=== PATIENT | female | born 1960 | race Caucasian/White ===

== ENCOUNTER 2018-06-25 15:36 | Emergency (ER) | payer OTHER ==
--- NOTE | 2018-06-25 16:37 | UC ---
Abdominal Pain Female HPI - HPI Summary HPI Summary: 58 yo female with the onset of upper abd pain radiating through to her back worse with food or movement diaphoretic last PM pain 9.5/10 at time during the night now 4/10 no n/v/d no f/c no UTI symptoms for three days last week she had similar but less severe pain - History of Current Complaint Chief Complaint: UCAbdominalPain Stated Complaint: ABDOMINAL PAIN Time Seen by Provider: 06/25/18 16:03 Hx Obtained From: Patient Onset/Duration: Gradual Onset, Lasting Hours Timing: Constant Severity Initially: Severe Severity Currently: Mild Pain Intensity: 4 Pain Scale Used: 0-10 Numeric Location: Diffuse Radiates to: Back Character: Aching, Burning Aggravating Factor(s): Food, Movement Alleviating Factor(s): Spontaneous Resolution Associated Signs and Symptoms: Positive: Diaphoresis, Decreased Appetite Female Torso: 1 - complains of pain here 2 - tender here 3 - less tender here Allergies/Adverse Reactions: Allergies Allergy/AdvReac Type Severity Reaction Status Date / Time CHARLES Inhibitors Allergy Swelling Verified 06/25/18 15:53 Of Face,Lips,& Throat Adhesive Tape [Paper Tape] Allergy NOT PAPER Verified 06/25/18 15:53 JUST TRANSPORE TAPE-BLISTERS adhesive tape Allergy Unknown Verified 06/25/18 15:53 Reaction Details codeine Allergy Hallucinati Verified 06/25/18 15:53 ons STATINS Allergy Anaphylatic Uncoded 06/25/18 15:53 Shock PMH/Surg Hx/FS Hx/Imm Hx Previously Healthy: Yes - Surgical History Surgical History: Yes Surgery Procedure, Year, and Place: OVARY REMOVED, MASS OUT OF LT BREAST- BENIGN. HEART CATHERIZATION - Family History Known Family History: Positive: Hypertension, Other - Breast CA - Social History Alcohol Use: Daily Substance Use Type: None Smoking Status (MU): Light Every Day Tobacco Smoker Type: Cigarettes Review of Systems All Other Systems Reviewed And Are Negative: Yes Constitutional: Positive: Negative Skin: Positive: Negative Eyes: Positive: Negative ENT: Positive: Negative Respiratory: Positive: Negative Cardiovascular: Positive: Negative Gastrointestinal: Positive: Abdominal Pain Genitourinary: Positive: Negative Motor: Positive: Negative Neurovascular: Positive: Negative Musculoskeletal: Positive: Negative Neurological: Positive: Negative Psychological: Positive: Negative Physical Exam Triage Information Reviewed: Yes Appearance: Well-Appearing, No Pain Distress, Well-Nourished Vital Signs: Initial Vital Signs Temp 97.0 F 06/25/18 15:47 Pulse 98 06/25/18 15:47 Resp 18 06/25/18 15:47 BP 00/00 06/25/18 15:47 Pulse Ox 99 06/25/18 15:47 Vital Signs Reviewed: Yes Eyes: Positive: Conjunctiva Clear ENT: Positive: Hearing grossly normal. Negative: Nasal congestion, Nasal drainage, Trismus, Muffled voice, Hoarse voice Neck: Positive: Supple, Nontender, No Lymphadenopathy Respiratory: Positive: Lungs clear, Normal breath sounds, No respiratory distress, No accessory muscle use Cardiovascular: Positive: RRR, No Murmur Abdomen Description: Positive: Soft. Negative: Nontender - LLQ>RLQ tenderness, CVA Tenderness (R), CVA Tenderness (L), Distended, Guarding Bowel Sounds: Positive: Present, Hyperactive Musculoskeletal: Positive: ROM Intact, No Edema Neurological: Positive: Alert Psychological Exam: Normal Skin Exam: Normal Diagnostics - Laboratory Diagnostic Studies Completed/Ordered: UA +leuks - EKG Cardiac Rate: NL Cardiac Rhythm: Sinus: Normal Ectopy: None ST Segment: Normal Abd Pain Female Course/Dx - Differential Dx/Diagnosis Provider Diagnosis: Abdominal pain of unknown cause Discharge - Sign-Out/Discharge Documenting (check all that apply): Patient Departure All imaging exams completed and their final reports reviewed: No Studies - Discharge Plan Condition: Stable Disposition: TRANS [facility] Referrals: Mindy May MD [Primary Care Provider] - Additional Instructions: please go directly to the ER for evaluation of you abdominal pain don't eat or drink enroute - Billing Disposition and Condition Condition: STABLE Disposition: Trans Higher Lvl of Care Fac
[2018-06-25 16:50] VITALS: BP 163/97
== END 2018-06-25 16:50 | disposition short-term general hospital (02) ==
LOC: UCEAST 15:36
DX: R10.10 Upper abdominal pain, unspecified (principal); Z88.8 Allergy status to other drugs, medicaments and biological substances; Z88.5 Allergy status to narcotic agent; F17.210 Nicotine dependence, cigarettes, uncomplicated
CPT/HCPCS: 81003; 87086; 93005; 99212; G0463

== ENCOUNTER → 2018-10-22 08:12 | Day surgery (SDC) | payer OTHER ==
[~2018-10-22 08:12] MED LIST: Adenosine* 3 MG/ML VIAL ONE; Aspirin 81 mg CHEW TAB* 81 MG TAB.CHEW PO SCH; CETIRIZINE HCL 10 MG PO SCH; Cyanocobalamin INJ * 1,000 MCG/ML VIAL 1 ML VIAL IM SCH; Diazepam TAB(*) 5 MG PO PRN; Diltiazem CD CAP* 120 MG PO SCH; ESOMEPRAZOLE MAGNESIUM 40 MG PO SCH; Heparin(*) 1000 UNIT/ML 10 ML VIAL CATH LAB IV ONE; Iohexol 350 (CONTRAST) 200 ML MDV IV ONE; Lidocaine 1% INJ* 10 MG/ML 30 ML SDV ONE; Midazolam* 1 MG/ML 5 ML VIAL (5 MG) ONE; NS 0.9% 1000 ML** 1,000 ML IV SCH; fentaNYL* 50 MCG/ML 2 ML VIAL (100 MCG VIAL) ONE; hydrALAZINE TAB* 25 MG PO SCH; nitroGLYCERIN DRIP* 25,000 MCG/250 ML BTL ONE; traMADol TAB* 50 MG PO PRN
[2018-10-22 16:49] VITALS: BP 156/106
--- NOTE | 2018-10-23 08:48 | CATH ---
CC: Dr. Mindy May; Dr. Everardo Espitia, [facility]. DIAGNOSTIC CARDIAC CATHETERIZATION REPORT: DATE OF PROCEDURE: 10/22/18 INDICATION FOR THE PROCEDURE: Asked by Dr. Espitia, the patient's primary shell mold bonder to perform diagnostic cardiac catheterization in light of the patient with chest discomfort with a history of prior coronary artery disease moderate nature with a Lexiscan stress test showing no ischemia with fixed or reversible perfusion abnormalities, but an elevated TID raising the question of multivessel disease. Assess the patient for progression of coronary artery disease. PROCEDURE: Coronary arteriography, left heart catheterization, left ventriculography, fractional flow reserve analysis of the left anterior descending artery. CONSENT: The patient was interviewed and examined in the holding area of the lab engineer where the risks and benefits were explained. She understood them and wished to proceed. PRECARDIAC CATHETERIZATION LABORATORY RESULTS: Hemoglobin and hematocrit of 14 and 42 with a platelet count of 254,000. BUN and creatinine was 8 and 0.8. Sodium 138, potassium 4.6, chloride 105, bicarb 29, INR was 0.92. APPROACH UTILIZED: The patient insisted on utilizing a femoral artery approach. She was not in favor with attempts of doing right radial artery approach and as such the right femoral artery approach was utilized. EQUIPMENT UTILIZED: 1. Right femoral artery sheath utilized initially a 5-Wallisian 11 cm Megha sheath, for FFR analysis. The sheath was exchanged for a 6.5 Wallisian Merit Prelude sheath. 2. Diagnostic coronary catheters - 5-Wallisian FL4, 5-Wallisian FR4 curved catheters. 3. Left heart catheterization catheter - a 5-Wallisian 145 degree angled pigtail catheter. 4. The diagnostic guidewire was a 0.035 x 175 cm J-tip guidewire. 5. The guiding catheter utilizing was a 6-Wallisian VL 3.5 curve guide catheter. 6. The FFR wire - a pressure wire x by [facility]. 7. Closure device utilized with a Mynx vascular closure device 6/7 Wallisian. MEDICATIONS GIVEN: The patient received 2 mg of Versed, 12.5 mcg of Fentanyl in the lab engineer for FFR analysis, she received the bolus of 5000 units of heparin intravenously. She received intracoronary nitroglycerin 100 mcg and FFR procedure bolus of 144 mcg of intracoronary adenosine. DESCRIPTION OF PROCEDURE: The patient was brought to the cardiovascular laboratory where formal time-out was performed. The patient was prepped and draped in sterile fashion. The right coronary area was anesthetized with 1% lidocaine. Right femoral artery was cannulated using an anterior wall stick only. The initial 5- Wallisian sheath was placed, diagnostic coronary arteriography and left heart catheterization, left ventriculography were performed. The decision was made to perform FFR to the left anterior descending artery. The existing 5-Wallisian sheath was exchanged with a 6.5 Wallisian sheath, guiding views were obtained and the patient received a total of 5000 units of heparin bolus. ACT was monitored. Fractional flow reserve analysis was carried out and after this an injection to the left coronary artery was made to assess postprocedure status. During left ventriculography, the patient received a total of 24 cc of Omnipaque dye at a rate of 12 cc per second. At the end of the case, the catheter and sheaths were removed and hemostasis was obtained with the Mynx closure device. The total contrast used was 125 cc of Omnipaque dye. Radiation exposure included 8.9 minutes of fluoro time, the air kerma radiation was 834 milligray. The DAP radiation was 5270 microgray per meter square. RESULTS: HEMODYNAMIC DATA: Left heart catheterization - central aortic pressure was recorded at 171/88 with a mean of 122, left ventricular pressure 174, left ventricular end diastolic pressure of 14 to 18 mmHg. On pull back, the LVEDP was 19 after the V gram. LEFT VENTRICULOGRAPHY: Performed in the GUIDRY projection revealed symmetrical contraction of the left ventricle with no focal wall motion abnormalities. The overall EF was estimated at 60%. CORONARY ARTERIOGRAPHY: CORONARY ARTERIOGRAPHY: A. Left coronary artery: 1. Left main - widely patent. 2. Left anterior descending artery - the proximal portion of the left anterior descending artery had an area of heavy calcification with a degree of luminal reduction noted to be in its worst view of 65% to 70%. In other views it appeared to be more like 50%. The lesion was clearly eccentric in nature. The continuation of the LAD supplied a moderate sized diagonal branch followed by small diagonal branches. Just after the take off of the third septal product safety professional, there was an area of luminal reduction that appeared to be as much as 65% to 70%. The mid diagonal branch had a proximal to mid segment that a [id number] luminal irregularity, the degree of stenosis seemed to be in this area of 35% to 40%. There was possibly a very small area of ulceration within this area of mild-to- moderate narrowing. There was YONATHAN-III flow and no evidence of any dissection. 3. Circumflex artery - a nondominant vessel with a thin trifurcation marginal branch. Following this, the circumflex extended supplying a moderate sized trifurcating obtuse marginal branch, which had minimal luminal irregularities. No significant blockages. B. Right coronary artery: A dominant to super dominant vessel supplying several small caliber acute marginal branches with a low lying acute marginal branch, which supplied the distal inferior septal region. This vessel appeared to have a 45% to 50% obstruction in its mid portion. The vessel then continued to 2 parallel thin posterior descending artery branches followed by 2 posterior LV branches. There was no significant obstruction seen throughout the rest of the course of these vessels. FRACTIONAL FLOW RESERVE ANALYSIS OF THE LEFT ANTERIOR DESCENDING ARTERY: FFR was performed with a wire down in the distal portion of the LAD past both the proximal lesion and the mid lesion. FFR was performed with a 144 mcg of adenosine and revealed a value of 0.86 suggesting non-hemodynamically significant disease. OVERALL ASSESSMENT: Moderate disease involving the left anterior descending artery as described above with a negative fractional flow reserve for significance. Of note, the mid diagonal branch does have [id number] disease in its proximal and mid portion with a possible ulcerated area. Continued aggressive risk factor management is recommended specifically, as the patient currently is not on any antihyperlipidemic agents because of reported intolerance to atorvastatin. I would strongly recommend the patient get started as soon as possible on subcutaneous agents. In addition, I stressed to the patient the importance of smoking cessation and she took this under advisement. She will be following up with her primary shell mold bonder, Dr. Espitia next week to review these results and further discussions. I personally gave this information to Dr. Espitia. [id number]/[facility] #: [id number] [id number]
== END | disposition home or self-care (01) ==
LOC: CHICATH 08:12
PROVIDERS: ATTEND Internal Medicine Cardiovascular Disease
DX: I25.119 Atherosclerotic heart disease of native coronary artery with unspecified angina pectoris (principal); I10 Essential (primary) hypertension; R06.02 Shortness of breath; I08.1 Rheumatic disorders of both mitral and tricuspid valves; E78.00 Pure hypercholesterolemia, unspecified; I72.0 Aneurysm of carotid artery; Z72.0 Tobacco use
CPT/HCPCS: 85347; 93458; 99156; 99157; A9270-GY; C1760; C1769; C1887; J0153; J1644; J2250; J3010